=== PATIENT | male | born 1975 | race Caucasian/White ===

== ENCOUNTER 2016-06-09 08:30 | Emergency (ER) | payer SELFPAY ==
[2016-06-09] MEDS ORDERED: EPINEPHrine SYR 0.1 MG/ML* (1:10,000) SYRINGE ONE ×6 (08:31→08:50)
[2016-06-09] MEDS ORDERED: Naloxone* 0.4 MG/ML 10 ML VIAL ONE (08:36)
[2016-06-09] MEDS ORDERED: Calcium CHLORIDE 10% SYRINGE* 1 GM/10 ML ONE ×2 (08:38→08:40)
[2016-06-09] MEDS ORDERED: Sodium Bicarbonate 8.4%* 50 ML SYRINGE ONE (08:42)
[2016-06-09] MEDS ORDERED: Amiodarone IV VIAL* 50 MG/ML 3 ML VIAL (150 MG) ONE (08:47)
[2016-06-09 13:01] VITALS: BP 0/0
--- NOTE | 2016-06-20 17:41 | ED ---
Swapna Siddiqi Matthew, scribed for Zachary Cook MD on 06/09/16 at 0956 . Cardiac Resuscitation - HPI Summary HPI Summary: A 40 y/o male presents to the ED in Cardiac Arrest. The patient was found down in a [facility]. The patient was believed to be down for 10-15 minutes before [facility] arrived on scene, began CPR, and placed an AED. The AED did not show a shockable rhythm. EMS then arrived at approximately 08:00 this morning and placed an auto pulse and an AED, which also did not show a shockable rhythm at that time. He was given 2mg of Narcan and Epi without response. In the elevator, the AED showed VFib and the patient was shocked. During transportation to the hospital he was intubated, started on IV fluids, given another epi, bicarp, and another epi 2 minutes before entering the ED. THe pateint's blood glucose was measured at 170 [employer]. A complete HPI was unable to be obtained as no one at the scene had a reliable story and no family was presence for a Hx. - History of Current Complaint Chief Complaint: EDCardiacArrest Stated Complaint: CARDIAC ARREST Hx Obtained From: EMS Hx From Patient Unobtainable Due To: Other - Cardiac Arrest; Unresponsive; LEVEL 5 CAVEAT Onset/Duration: Unknown Arrest Witnessed: No Down-time Before Basic Life Support Initiated: Unknown Down-time Before Advanced Life Support Initiated: Unknown Was AED Placed on Patient: Yes AED Placed on Patient By: EMS Did AED Recommend Defibrillation: Yes Was Defibrillating Shock Administered: Yes Did Patient Have Return of Spontaneous Circulation (ROSC): No - Prehospital Findings Disability/Neurologic: Unresponsive - Prehospital Intervention Airway: Oral Airway Breathing: Intubation: Circulation/Rhythm: Chest Compressions, Defibrillation:, Epinephrine:, IV Catheter Placed - Prehospital Response Airway: Patent - Past Medical History Past Medical History: Unobtainable Due to Extremis - Family History Family History: Unobtainable Due to Extremis - Social History Social History: Unobtainable Due to Extremis - Review of Systems Review of Systems: Unobtainable Due to Extremis Physical Examination - Physical Examination Resuscitation: Unsuccessful - ED Findings Airway: Patent Breathing: Apnea Disability/Neurological: Unresponsive - ED Intervention Breathing: Intubation: - endotracheal tube in place upon arrival Circulation/Rhythm: Chest Compressions, Defibrillation:, Epinephrine: - ED Additional Pertinent Findings Additional Pertinent Findings: Other: - Pulseless; Cyanosis from the neck up to his forehead; Conjunctival hemorrhaging bilaterally; Warm Skin; Bilateral lung sounds with respiration Cardiac Resus. Course/Dx - Diagnoses Provider Diagnoses: Cardiopulmonary arrest - Provider Notifications Discussed Care Of Patient With: Dr. Meeks (clinical medical transcriptionist) at 08:59 -- Notified of patient's history and will start an investigation. Discharge - Discharge Plan Condition: Disposition: The documentation as recorded by the Swapna oscar Matthew accurately reflects the service I personally performed and the decisions made by , Zachary Cook MD.
== END 2016-06-09 10:31 | disposition expired ==
LOC: ED 08:30
DX: I46.9 Cardiac arrest, cause unspecified (principal)
CPT/HCPCS: 92950; 96374; 99285; J0171; J0282; J2310